=== PATIENT | female | born 1935 | race Caucasian/White ===

== ENCOUNTER 2020-11-06 08:00 | Outpatient (CLI) | payer OTHER ==
[~2020-11-06 08:00] MED LIST: CARVEDILOL3.125 MG; CARVEDILOL6.25 MG; FOSINOPRIL SODI10 MG; GLUCOPHAGE XR500 MG; GLUCOTROL10 MG; LISINOPRIL-HCTZ1 TA1; ZOCOR20 MG
== END 2020-11-06 08:30 | disposition home or self-care (01) ==
LOC: PPH VACUNA 08:00
DX: Z23 Encounter for immunization (principal)